=== PATIENT | female | born 1995 | race Caucasian/White ===

== ENCOUNTER 2018-11-16 14:58 | Outpatient (CLI) | payer OTHER ==
[~2018-11-16] VITALS: Ht 152.4 cm; Wt 80.9 kg
[2018-11-16 15:12] VITALS: BP 126/81; PULSE 90; TEMP 97.5
[2018-11-16] MEDS ORDERED: CALCIUM 600MG+D1 TAB PO (15:18)
[2018-11-16] MEDS ORDERED: CEPHALEXIN500 M1 (15:18)
[2018-11-16] MEDS ORDERED: PRENATAL FORMU1 EAC3 PO (15:18)
[2018-11-16 15:20] VITALS: BP 126/81; PULSE 90; TEMP 98.1
--- NOTE | 2018-11-16 15:30 | NUR ---
1520 PATIENT HERE FOR COMPLAINTS OF CONTRACTIONS SINCE 2 AM AND UNCOMFORTABLE. ASSESSMENT COMPLETED AND VS WNL. EFM ON FHT 140 BABY VERY ACTIVE. NO CONTRACTIONS AT THIS TIME. DR PITTS CALLED AND GIVEN ALL ABOVE INFORMATION. ORDERS TO PO HYDRATE AND RECHECK IN HOUR.
[2018-11-16 15:45] VITALS: BP 98/55; PULSE 73
[2018-11-16 16:15] VITALS: BP 105/67; PULSE 73
[2018-11-16 16:30] VITALS: BP 103/58; PULSE 72
--- NOTE | 2018-11-16 16:30 | NUR ---
1655 Dismissed to home with instructions. Verbalizes understanding. Discharged with spouse. Alert, ambulatory, stable.
== END 2018-11-16 16:55 | disposition home or self-care (01) ==
LOC: LDRO 14:58 → LDR 15:05 → LDRO 16:55
DX: O62.9 Abnormality of forces of labor, unspecified (principal); Z3A.39 39 weeks gestation of pregnancy
CPT/HCPCS: OP

== ENCOUNTER 2018-11-18 05:42 | Inpatient (IN) | payer OTHER ==
[~2018-11-18] VITALS: Ht 149.9 cm; Wt 80.9 kg
[2018-11-18] VITALS (17 sets, daily range): BP systolic 101–128; BP diastolic 64–97; PULSE 76–95; TEMP 98–99.1
[~2018-11-18 05:42] MED LIST: CALCIUM 600MG+D1 TAB PO; CEPHALEXIN500 M1; PRENATAL FORMU1 EAC3 PO
--- NOTE | 2018-11-18 05:55 | NUR ---
arrives to unit ambulatory for scheduled section. Pt reports feeling good movement, denies LOF, or vaginal bleeding. Pt does report feeling contractions but knows they aren't strong enough to make any cervical change. Pt oriented to room, call light within reach, bed in low and locked position. Pt changed into clean gown. EFM and toco explained and applied. Vital signs obtained. 0600 - IV started in right wrist with 1 attempt. Admission labs obtained off of IV start.
[2018-11-18] MEDS ORDERED: ZANTAC 150MG T150 MG PO (06:25)
[2018-11-18 06:40] LABS: BASO % 0.2 % (0.0-2.0); EOS # 0.1 (0.0-0.7); EOS % 0.5 % (0-4.0); GRAN % 62.6 % (42.2-75.2); HEMATOCRIT 38.2 % (37.0-47.0); HEMOGLOBIN 12.5 g/dl (12.5-16.0); LYMPH # 3.1 (1.2-3.4); LYMPH % 28.2 % (20.0-51.0); MEAN CELL VOLUME 86 fl (80.0-100.0); MEAN CORPUSCULAR HEMOGLOBIN 28 pg (27.0-31.0); MEAN CORPUSCULAR HGB CONC 33 g/dl (33.0-37.0); MONO # 0.9 (0.1-0.6); MONO % 8.1 % (1.7-9.3); PLATELET COUNT 211 K/mm3 (130-400); RED BLOOD COUNT 4.44 M/mm3 (4.10-5.30); REDCELL DISTRIBUTION WIDTH-CV 14.6 % (11.5-14.5)
--- NOTE | 2018-11-18 10:29 | NUR ---
Initial visit attempt; Software Test And Validation Engineer spoke with family awaiting the of the new baby. Software Test And Validation Engineer offered God's blessings.
--- NOTE | 2018-11-18 16:00 | NUR ---
Pt up and ambulated to bathroom with assist. Cohen catheter removed per this nurse. Pericare instructions given. New underwear and gown in place. Pt back to bed, tolerated well.
[2018-11-19 00:30] VITALS: BP 107/69; PULSE 89; TEMP 98.5
[2018-11-19 05:00] VITALS: BP 115/80; PULSE 86; TEMP 98.9
[2018-11-19 08:32] LABS: HEMATOCRIT 32.6 % (37.0-47.0); HEMOGLOBIN 10.5 g/dl (12.5-16.0)
[2018-11-19 09:17] VITALS: BP 105/68; PULSE 99; TEMP 98
--- NOTE | 2018-11-19 10:46 | NUR ---
Initial visit; Mom thanked Catering Service Manager for offering congratulations and God's blessings for the of her son. Catering Service Manager thanked family for choosing [facility].
[2018-11-19 16:51] VITALS: BP 107/70; PULSE 89; TEMP 98
[2018-11-19 21:55] VITALS: BP 126/76; PULSE 96; TEMP 97.6
[2018-11-20 07:53] VITALS: BP 114/74; PULSE 81
[2018-11-20] MEDS ORDERED: IBU600 MG PO (08:25)
[2018-11-20] MEDS ORDERED: PERCOCET 325 MG1 TA2 PO (08:25)
== END 2018-11-20 10:40 | disposition home or self-care (01) | DRG 787 ==
LOC: LDR → OB 05:42 → LDR 09:22 → OB 11-20 10:40
PROVIDERS: ADMIT Obstetrics & Gynecology
PROC: 10D00Z1 Extraction of Products of Conception, Low, Open Approach (ICD-10-PCS; principal; 2018-11-18)
DX: O34.211 Maternal care for low transverse scar from previous cesarean delivery (principal); O23.43 Unspecified infection of urinary tract in pregnancy, third trimester; O99.62 Diseases of the digestive system complicating childbirth; K21.9 Gastro-esophageal reflux disease without esophagitis; O99.214 Obesity complicating childbirth; Z3A.39 39 weeks gestation of pregnancy; Z37.0 Single live birth; Z88.5 Allergy status to narcotic agent
CPT/HCPCS: J0690; J1885; J2370; J2405; J2590; J7120

== ENCOUNTER → 2020-05-30 | Outpatient (CLI) | payer OTHER ==
[~2020-05-30] MED LIST changes: +IBU600 MG PO; +PERCOCET 325 MG1 TA2 PO; +ZANTAC 150MG T150 MG PO
== END ==
LOC: COL.RAD 07:44
DX: R10.12 Left upper quadrant pain (principal); Z97.5 Presence of (intrauterine) contraceptive device
CPT/HCPCS: Q9967

== ENCOUNTER 2020-06-23 08:34 | Day surgery (SDC) | payer OTHER ==
[~2020-06-23] VITALS: Ht 152.4 cm; Wt 71.0 kg
[2020-06-23] MEDS ORDERED: PROZAC 20MG20 MG PO (09:05)
[2020-06-23] MEDS ORDERED: ZYRTEC 10MG10 MG PO (09:06)
[2020-06-23] MEDS ORDERED: BUSPAR10 MG PO (09:07)
[2020-06-23 09:19] VITALS: BP 121/85; PULSE 82; TEMP 98.4
[2020-06-23 10:25] VITALS: BP 109/84; PULSE 77; TEMP 97.7
--- NOTE | 2020-06-23 10:25 | NUR ---
Pt to GI bay 8 via cart from [employer]. Pt awake and alert. Pt ambulates to recliner with stand by assistance. Warm blanket provided. Pt denies pain or nausea. Muffin and applejuice given per pt request. in room. Call light within reach.
[2020-06-23 10:40] VITALS: BP 106/81; PULSE 77
--- NOTE | 2020-06-23 10:40 | NUR ---
Pt tolerating po food and fluids without difficulties. Denies needs. Call light within reach.
[2020-06-23 10:55] VITALS: BP 106/68; PULSE 78
--- NOTE | 2020-06-23 10:55 | NUR ---
Pt visiting with her . Denies needs. Call light within reach.
[2020-06-23 11:10] VITALS: BP 102/78; PULSE 85
--- NOTE | 2020-06-23 11:10 | NUR ---
IV site discontinued with all parts intact. Pt up to dress. Call light within reach.
--- NOTE | 2020-06-23 11:30 | NUR ---
Discharge instructions reviewed. Pt voices understanding. Pt escorted to private car via wheel chair. Pt accompanied home by her .
== END 2020-06-23 11:30 | disposition home or self-care (01) ==
LOC: SDCO 08:34
DX: K29.30 Chronic superficial gastritis without bleeding (principal); K21.9 Gastro-esophageal reflux disease without esophagitis; F32.9 Major depressive disorder, single episode, unspecified; F41.9 Anxiety disorder, unspecified; Z79.899 Other long term (current) drug therapy; Z20.822 Contact with and (suspected) exposure to COVID-19; Z88.5 Allergy status to narcotic agent
CPT/HCPCS: J2704; J7120